=== PATIENT | female | born 1975 | race Caucasian/White ===

== ENCOUNTER 2018-03-12 12:10 | Emergency (ER) | payer OTHER ==
[~2018-03-12] VITALS: Ht 165.1 cm; Wt 65.8 kg
[~2018-03-12 12:10] MED LIST: NAPR220T66 PO; SERT25TA PO; SUMA25TA PO
[2018-03-12] MEDS ORDERED: FLUO10CA26 PO (12:25)
--- NOTE | 2018-03-12 13:29 | NUR ---
PT WAS D/C TO HOME. D/C INSTRUCTIONS GIVEN TO THE PT.
[2018-03-12 13:33] VITALS: BP 132/79
== END 2018-03-12 13:35 | disposition home or self-care (01) ==
LOC: ER 12:11
DX: L03.116 Cellulitis of left lower limb (principal); Z79.1 Long term (current) use of non-steroidal anti-inflammatories (NSAID); Z79.899 Other long term (current) drug therapy
CPT/HCPCS: 73630; 99284; A4663

== ENCOUNTER 2018-06-08 14:17 | Emergency (ER) | payer OTHER ==
[~2018-06-08] VITALS: Ht 165.1 cm; Wt 68.0 kg
[~2018-06-08 14:17] MED LIST changes: +FLUO10CA26 PO; -SERT25TA PO
[2018-06-08] MEDS ORDERED: KETOROLAC TROMETHAMINE 30 MG INJ ONE ×2 (14:44→15:09)
[2018-06-08 14:47] LABS: *BILIRUBIN,URIN NEGATIVE (NEGATIVE); *BLOOD, URINE 3+ (NEGATIVE); *CLARITY,URINE CLOUDY (CLEAR); *COLOR,URINE YELLOW (YELLOW); *KETONES,URINE NEGATIVE (NEGATIVE); *PROTEIN,URINE 1+ (NEGATIVE); *UROBILINOGEN,URINE 0.2 E.U./dl (NORMAL); LEUKOCYTE ESTERASE ,URINE 3+ (NEGATIVE); NITRITE, URINE NEGATIVE (NEGATIVE); UGLUCOSE NEGATIVE (NEGATIVE)
[2018-06-08] MEDS: KETOROLAC TROMETHAMINE 30 MG INJ IM ONE (14:48)
[2018-06-08 14:49] LABS: *URINE HCG, QUAL NEGATIVE (NEGATIVE)
[2018-06-08 14:57] LABS: BACTERIA,URINE FEW /HPF (NONE SEEN); RBC,URINE 80-100 /HPF (0-3); SQUAMOUS EPITHELIAL CELL,UR FEW /HPF (NONE SEEN); WBC,URINE TNTC /HPF (0-3)
[2018-06-08] MEDS ORDERED: CEFTRIAXONE 1 G VIAL ONE (15:09)
[2018-06-08] MEDS ORDERED: PHENAZOPYRIDINE HCL 100 MG TABLET ONE (15:10)
[2018-06-08] MEDS: CEFTRIAXONE 1 G VIAL IM ONE (15:16)
[2018-06-08] MEDS: PHENAZOPYRIDINE HCL 100 MG TABLET PO ONE (15:17)
[2018-06-08 15:38] LABS: BASOPHILS % (AUTO) 0.3 % (0.0-2.0); EOSINOPHILS # (AUTO) 0.1 K/uL (0.0-0.7); EOSINOPHILS % (AUTO) 1.2 % (0.0-7.0); HEMATOCRIT 36.5 % (31.2-41.9); HEMOGLOBIN 12.8 g/dL (10.9-14.3); LYMPHOCYTES # (AUTO) 1.6 K/uL (20.0-40.0); LYMPHOCYTES % (AUTO) 19.3 % (20.5-51.5); MEAN CORPUSCULAR HGB CONC 35 g/dL (32.3-35.6); MONOCYTES # (AUTO) 0.6 K/uL (2.0-10.0); MONOCYTES % (AUTO) 6.9 % (0.0-11.0); NEUTROPHILS # (AUTO) 6.2 K/uL (1.8-8.9); NEUTROPHILS % (AUTO) 72.3 % (38.5-71.5); PLATELET COUNT (AUTO) 191 K/uL (179-408); RED BLOOD CELL COUNT(AUTO) 3.77 MIL/uL (3.63-4.92); WHITE BLOOD COUNT (AUTO) 8.5 K/uL (3.8-11.8)
--- NOTE | 2018-06-08 15:49 | NUR ---
Patient discharged to home in stable conditon. Written and verbal after care instructions given. Patient verbalizes understanding of instructions.PT WALKS IN STEDY GAIT. PT TOLERATED IM ROCEPHIN, NO REACTION.
== END 2018-06-08 15:51 | disposition home or self-care (01) ==
LOC: ER 14:17
DX: S80.12XA Contusion of left lower leg, initial encounter (principal); N12 Tubulo-interstitial nephritis, not specified as acute or chronic; X58.XXXA Exposure to other specified factors, initial encounter; Y93.89 Activity, other specified; Y92.89 Other specified places as the place of occurrence of the external cause; Y99.8 Other external cause status
CPT/HCPCS: 36415; 84703; 85025; 87086; A4663; J0696; J1885; J3490

== ENCOUNTER 2023-11-16 16:02 | Emergency (ER) | payer OTHER ==
[~2023-11-16] VITALS: Ht 165.1 cm; Wt 67.1 kg
[2023-11-16 16:59] LABS: BASOPHILS # (AUTO) 0.1 K/UL (0.0-0.2); DIFFERENTIAL COMMENT 1; EOSINOPHILS # (AUTO) 0.1 K/uL (0.0-0.7); HEMATOCRIT 40.7 % (31.2-41.9); HEMOGLOBIN 13.8 g/dL (10.9-14.3); MEAN CORPUSCULAR HEMOGLOBIN 32.6 uug (24.7-32.8); MEAN CORPUSCULAR HGB CONC 34 g/dL (32.3-35.6); MEAN CORPUSCULAR VOLUME 96.4 fL (75.5-95.3); MONOCYTES # (AUTO) 0.6 K/uL (0.1-1.30); MONOCYTES % (AUTO) 9.3 % (0.0-11.0); NEUTROPHILS # (AUTO) 4.3 K/uL (1.8-8.9); NEUTROPHILS % (AUTO) 71.7 % (38.5-71.5); PLATELET COUNT (AUTO) 229 K/uL (179-408); RED BLOOD CELL COUNT(AUTO) 4.22 MIL/uL (3.63-4.92)
[2023-11-16 17:04] LABS: CALCIUM 9.9 mg/dL (8.5-10.1); CARBON DIOXIDE 30 mmol/L (21-32); CHLORIDE 103 mmol/L (98-107); CREATININE 0.7 mg/dL (0.6-1.3); GLUCOSE 97 mg/dL (74-106); POTASSIUM 3.5 mmol/L (3.5-5.1); SODIUM SERUM 139 mmol/L (136-145); UREA NITROGEN, BLOOD 9 mg/dL (7-18)
[2023-11-16 17:37] VITALS: O2SAT 100
== END 2023-11-16 18:19 | disposition home or self-care (01) ==
LOC: ER 16:05
DX: M79.602 Pain in left arm (principal); R20.2 Paresthesia of skin; F41.9 Anxiety disorder, unspecified; Z98.890 Other specified postprocedural states; Z79.899 Other long term (current) drug therapy
CPT/HCPCS: 36415; 71045; 84484; 85025; 93005; A4606; A4663

== ENCOUNTER 2025-07-14 20:45 | Emergency (ER) | payer OTHER ==
[~2025-07-14] VITALS: Ht 165.1 cm; Wt 65.8 kg
[2025-07-14 20:46] VITALS: BP 105/48
[2025-07-14] MEDS ORDERED: PHEN-704 PO (20:58)
[2025-07-14] MEDS ORDERED: CEPH500C2 PO (20:59)
[2025-07-14] MEDS ORDERED: CEFTRIAXONE /D5W 50ML IVPB **ER PYXIS IV ONE (20:59)
[2025-07-14] MEDS ORDERED: KETOROLAC TROMETHAMINE 15 MG INJ ONE (20:59)
[2025-07-14] MEDS: KETOROLAC TROMETHAMINE 15 MG INJ IVP ONE (21:10)
[2025-07-14 21:14] LABS: PLATELET COUNT (AUTO) 201 K/uL (179-408); RED BLOOD CELL COUNT(AUTO) 3.67 MIL/uL (3.63-4.92); RED CELL DISTRIBUTION WIDTH 12.9 % (12.3-17.7); WHITE BLOOD COUNT (AUTO) 8.6 K/uL (3.8-11.8)
[2025-07-14 21:19] LABS: CREATININE 0.7 mg/dL (0.6-1.3); SODIUM SERUM 139.0 mmol/L (136-145); UREA NITROGEN, BLOOD 19.0 mg/dL (7-18)
[2025-07-14 21:31] VITALS: BP 105/48; O2SAT 97
[2025-07-14 21:48] LABS: *BILIRUBIN,URIN NEGATIVE (NEGATIVE); *BLOOD, URINE 1+ (NEGATIVE); *CLARITY,URINE CLEAR (CLEAR); *COLOR,URINE YELLOW (YELLOW); *KETONES,URINE NEGATIVE (NEGATIVE); *PROTEIN,URINE NEGATIVE (NEGATIVE); *UROBILINOGEN,URINE 0.2 E.U./dl (NORMAL); LEUKOCYTE ESTERASE ,URINE NEGATIVE (NEGATIVE); NITRITE, URINE NEGATIVE (NEGATIVE); UGLUCOSE NEGATIVE (NEGATIVE)
[2025-07-14 21:59] LABS: SQUAMOUS EPITHELIAL CELL,UR FEW /HPF (NONE SEEN)
== END 2025-07-14 21:32 | disposition home or self-care (01) ==
LOC: ER 20:48
DX: N39.0 Urinary tract infection, site not specified (principal); F17.200 Nicotine dependence, unspecified, uncomplicated; F41.9 Anxiety disorder, unspecified; Z86.011 Personal history of benign neoplasm of the brain; Z86.018 Personal history of other benign neoplasm; Z88.1 Allergy status to other antibiotic agents; Z88.2 Allergy status to sulfonamides; Z88.7 Allergy status to serum and vaccine
CPT/HCPCS: 99284; 96365; 96375; 80048; 81001; 85025; 36415; J1885; J0696; A4606; A4663